=== PATIENT | female | born 1965 ===

== ENCOUNTER 2016-09-14 12:07 | Emergency (ER) | payer OTHER ==
[2016-09-14 12:13] VITALS: TEMP 97.6; O2SAT 98
[2016-09-14] MEDS ORDERED: Albuterol-Ipratrop 3 mg / 0.5 (3 ml) UD ONE (12:24)
--- NOTE | 2016-09-14 12:25 | ED PDOC ---
HPI: SOB/CHF/COPD Time Seen by Provider: 09/14/16 12:16 Chief Complaint (Nursing): Shortness Of Breath Chief Complaint (Provider): cough, wheezing History Per: Patient, Family (daughter at bedside is translating in German for patient) Additional Complaint(s): 50-year-old female with history of asthma presents to emergency department with wheezing and cough that started 4 days ago. Ventolin inhaler is not helping her symptoms. Patient denies recent travel or known sick contacts, no fever or chills. Patient has chest pain only when coughing. Past Medical History Reviewed: Historical Data, Nursing Documentation, Vital Signs Vital Signs: Last Vital Signs Temp 97.6 F 09/14/16 12:20 Pulse 79 09/14/16 14:30 Resp 19 09/14/16 14:30 BP 156/82 H 09/14/16 14:30 Pulse Ox 98 09/14/16 14:30 - Medical History PMH: Asthma - Surgical History Surgical History: No Surg Hx - Family History Family History: States: No Known Family Hx - Living Arrangements Living Arrangements: With Family - Social History Current smoker - smoking cessation education provided: No Alcohol: None Drugs: Denies - Home Medications Home Medications: Ambulatory Orders Medication Instructions Recorded Albuterol HFA [Ventolin HFA 90 1 puff IH ASDIR #1 unit 09/14/16 mcg/actuation (8 g)] Albuterol HFA [Ventolin HFA 90 1 puff INH PRN PRN 09/14/16 mcg/actuation (8 g)] predniSONE [Prednisone] 20 mg PO BID #10 tab 09/14/16 - Allergies Allergies/Adverse Reactions: Allergies Allergy/AdvReac Type Severity Reaction Status Date / Time No Known Allergies Allergy Verified 09/14/16 12:24 Wells Criteria for PE - Wells Criteria for Pulmonary Embolism Clinical Signs and Symptoms of DVT: No P.E is #1 Diagnosis, or Equally Likely: No Heart Rate >100: No Immobilization at least 3 days;Surgery previous 4 weeks: No Previous, objectively diagnosed PE or DVT: No Hemoptysis: No Malignancy w/treatment within 6 months, or palliative: No Total Score: 0 Review of Systems ROS Statement: Except As Marked, All Systems Reviewed And Found Negative Constitutional: Negative for: Fever, Chills Cardiovascular: Positive for: Chest Pain (due to cough) Respiratory: Positive for: Cough, Shortness of Breath, Wheezing Gastrointestinal: Negative for: Nausea, Vomiting Physical Exam - Reviewed Nursing Documentation Reviewed: Yes Vital Signs Reviewed: Yes - Physical Exam Appears: Positive for: Well, Non-toxic, No Acute Distress Skin: Negative for: Rash Eye Exam: Positive for: Normal appearance, EOMI, PERRL Cardiovascular/Chest: Positive for: Regular Rate, Rhythm Respiratory: Positive for: Rhonchi, Wheezing, Respiratory Distress (mild). Negative for: Accessory Muscle Use, Crackles, Rales Extremity: Negative for: Pedal Edema Neurologic/Psych: Positive for: Alert, Oriented - Laboratory Results Result Diagrams: 09/14/16 12:40 09/14/16 12:40 - ECG Interpretation Of ECG: SR 72 bpm with PVC's, reviewed by PA and ED attending O2 Sat by Pulse Oximetry: 98 Pulse Ox Interpretation: Normal - Other Rad CXR X-Ray: Interpreted by Me, Viewed By Me X-Ray Interpretation: no acute infiltrate Nebulizer Treatments/Peak Flow - Duonebs Number of Bronchodilator Doses given?: 3 (duoneb) - Pre/Post Peak Flow Pre Treatment Peak Flow: 100 Post treatment Peak Flow: 250 - Steroid Treatment Steroid: IV (125 mg solumedrol) - Clinical Response Clinical Response: Improved Medical Decision Making Medical Decision Making: Patient: Asthma exacerbation. Plan: CBC CMP Trop BNP CXR EKG IVF IV solumedrol 125 mg Duoneb x 3 Patient is aware of all diagnostic testing results, all questions answered. Patient feels much better after meds given in ED. Breath sounds much more clear upon repeat examination. Prescriptions given for Ventolin inhaler and prednisone. Patient was referred to clinic for follow up. Disposition - Clinical Impression Clinical Impression: Asthma exacerbation - Patient ED Disposition Is Patient to be Admitted: No Counseled Patient/Family Regarding: Studies Performed, Diagnosis, Need For Followup, Rx Given - Disposition Referrals: [facility] [Outside] Disposition: Routine/Home Disposition Time: 15:36 Condition: IMPROVED Additional Instructions: Take prescription medications as directed. Follow-up with clinic in 2-3 days. Prescriptions: Albuterol HFA [Ventolin HFA 90 mcg/actuation (8 g)] 1 puff IH ASDIR #1 unit predniSONE [Prednisone] 20 mg PO BID #10 tab Instructions: Asthma (ED) Print Language: TAMAZIGHT Results - Lab Results Lab Results: 09/14/16 09/14/16 12:40 12:40 WBC 10.3 RBC 5.01 Hgb 14.0 Hct 41.8 MCV 83.6 MCH 28.1 MCHC 33.6 RDW 14.1 Plt Count 246 MPV 7.8 Neut % (Auto) 56.2 Lymph % (Auto) 22.5 Wise % (Auto) 6.6 Eos % (Auto) 13.3 H Baso % (Auto) 1.4 Neut # 5.8 Lymph # 2.3 Wise # 0.7 Eos # 1.4 H Baso # 0.1 Sodium 142 Potassium 3.9 Chloride 102 Carbon Dioxide 28 Anion Gap 16 BUN 10 Creatinine 0.6 L Est GFR ( Amer) > 60 Est GFR (Non-Af Amer) > 60 Random Glucose 91 Calcium 9.6 Total Bilirubin 0.8 AST 28 ALT 42 Alkaline Phosphatase 90 Troponin I < 0.0120 NT-Pro-B Natriuret Pep 238 Total Protein 7.8 Albumin 4.5 Globulin 3.3 Albumin/Globulin Ratio 1.4
[2016-09-14] MEDS ORDERED: Sodium Chloride 0.9% 1,000 ML IV STA (12:26)
[2016-09-14] MEDS ORDERED: Albuterol-Ipratrop 3 mg / 0.5 (3 ml) UD INH STA (12:26)
[2016-09-14 12:57] LABS: BASO # 0.1 K/uL (0.0-0.2); BASO % 1.4 % (0.0-2.0); EOS # 1.4 K/uL (0.0-0.7); EOS % 13.3 % (0.0-4.0); HEMATOCRIT 41.8 % (34.0-47.0); LYMPH # 2.3 K/uL (1.0-4.3); LYMPH % 22.5 % (20.0-40.0); MEAN CELL VOLUME 83.6 fl (81.0-99.0); MEAN CORPUSCULAR HEMOGLOBIN 28.1 pg (27.0-31.0); MEAN CORPUSCULAR HGB CONC 33.6 g/dL (33.0-37.0); MEAN PLATELET VOLUME 7.8 fl (7.2-11.7); MONO # 0.7 K/uL (0.0-0.8); MONO % 6.6 % (0.0-10.0); NEUT # 5.8 K/uL (1.8-7.0); NEUT % 56.2 % (50.0-75.0); NRBC % 0.1 % (0.0-0.0); RED CELL DISTRIBUTION WIDTH 14.1 % (11.5-14.5); WHITE BLOOD COUNT 10.3 K/uL (4.8-10.8)
--- NOTE | 2016-09-14 12:59 | RAD ---
HISTORY: cough, SOB, asthma COMPARISON: No prior. FINDINGS: LUNGS: No active pulmonary disease. PLEURA: No significant pleural effusion identified, no pneumothorax apparent. CARDIOVASCULAR: Normal. OSSEOUS STRUCTURES: No significant abnormalities. VISUALIZED UPPER ABDOMEN: Normal. OTHER FINDINGS: None. IMPRESSION: No active disease.
[2016-09-14 13:07] LABS: ALB/GLOB RATIO 1.4 (1.0-2.1); ALKALINE PHOSPHATASE 90 U/L (38-126); ALT/SGPT 42 U/L (9-52); AST/SGOT 28 U/L (14-36); BILIRUBIN,TOTAL 0.8 mg/dl (0.2-1.3); BLOOD UREA NITROGEN 10 mg/dl (7-17); CALCIUM 9.6 mg/dL (8.4-10.2); CARBON DIOXIDE 28 mmol/L (22-30); CHLORIDE 102 mmol/L (98-107); GFR AFRICAN-AMERICAN > 60; GLUCOSE,RANDOM 91 mg/dL (65-105); POTASSIUM 3.9 MMOL/L (3.6-5.0); SODIUM 142 mmol/l (132-148); TOTAL PROTEIN 7.8 G/DL (6.3-8.2)
[2016-09-14 14:30] VITALS: BP 156/82; PULSE 79; RESP 19
--- NOTE | 2016-09-16 07:17 | CARD ---
APPROVED REPORT EKG Measurement Heart [id number] <Conclusion> Sinus rhythm with premature supraventricular complexes Otherwise normal ECG
== END 2016-09-14 15:56 | disposition home or self-care (01) ==
LOC: H.ER 12:07
DX: J45.901 Unspecified asthma with (acute) exacerbation (principal); R05 Cough

== ENCOUNTER 2016-10-21 22:54 | Emergency (ER) | payer OTHER ==
[2016-10-21] MEDS ORDERED: Albuterol-Ipratrop 3 mg / 0.5 (3 ml) UD ONE (23:20)
[2016-10-21] MEDS ORDERED: Albuterol-Ipratrop 3 mg / 0.5 (3 ml) UD INH STA (23:27)
--- NOTE | 2016-10-21 23:45 | ED PDOC ---
HPI: SOB/CHF/COPD Time Seen by Provider: 10/21/16 23:16 Chief Complaint (Nursing): Shortness Of Breath History Per: Patient Additional History Per: Patient Additional Complaint(s): Pt. states for the past week she's had a cough and sore throat and today she developed wheezing and chest tightness. She used albuterol nebs and inhaler without any relief prompting ED visit. Denies previous intubations, previous admissions for asthma, fever, hemoptysis, rash. Past Medical History Reviewed: Historical Data, Nursing Documentation, Vital Signs Vital Signs: Last Vital Signs Temp 99.2 F 10/21/16 22:57 Pulse 98 H 10/21/16 22:57 Resp 20 10/21/16 23:22 BP 150/70 10/21/16 22:57 Pulse Ox 98 10/21/16 23:45 - Medical History PMH: Asthma - Family History Family History: States: No Known Family Hx - Home Medications Home Medications: Ambulatory Orders Medication Instructions Recorded Albuterol HFA [Ventolin HFA 90 1 puff IH ASDIR #1 unit 09/14/16 mcg/actuation (8 g)] Albuterol HFA [Ventolin HFA 90 1 puff INH PRN PRN 09/14/16 mcg/actuation (8 g)] predniSONE [Prednisone] 20 mg PO BID #10 tab 09/14/16 Albuterol 0.083% [Albuterol 3 ml IH Q4 PRN #50 neb 10/22/16 Sulfate 3 Ml] Albuterol HFA [Ventolin HFA 90 2 puff IH [id number] PRN #1 each 10/22/16 mcg/actuation (8 g)] Methylprednisolone [Medrol Dose 4 mg PO DAILY #21 mg 10/22/16 Pack (21 tabs)] - Allergies Allergies/Adverse Reactions: Allergies Allergy/AdvReac Type Severity Reaction Status Date / Time No Known Allergies Allergy Verified 09/14/16 12:24 Review of Systems ROS Statement: Except As Marked, All Systems Reviewed And Found Negative ENT: Positive for: Throat Pain Respiratory: Positive for: Cough, Wheezing Physical Exam - Physical Exam Appears: Positive for: Well, Non-toxic, No Acute Distress Skin: Positive for: Normal Color, Warm. Negative for: Rash Eye Exam: Positive for: EOMI, Normal appearance, PERRL ENT: Positive for: Normal ENT Inspection Neck: Positive for: Normal, Painless ROM Cardiovascular/Chest: Positive for: Regular Rate, Rhythm Respiratory: Positive for: Wheezing (b/l), Other (speaking in full sentences). Negative for: Decreased Breath Sounds, Accessory Muscle Use, Crackles, Rales, Rhonchi, Respiratory Distress Extremity: Positive for: Normal ROM Neurologic/Psych: Positive for: Alert, Oriented - ECG ECG: Positive for: Interpreted By Me ECG Rhythm: Positive for: Sinus Tachycardia. Negative for: ST/T Changes Rate: 106 O2 Sat by Pulse Oximetry: 98 - Radiology X-Ray: Interpreted by Me (CXR) X-Ray Interpretation: No Acute Disease - Progress ED Course And Treament: Duoneb x 3, prednisone 60mg PO given. CXR ordered. Re-evaluation Time: 01:34 (Lungs clear b/l. Reports good relief of wheezing and dyspnea.) Condition: Re-examined, Improved Disposition - Clinical Impression Clinical Impression: Bronchospasm, acute - Patient ED Disposition Is Patient to be Admitted: No - Disposition Referrals: [facility] [Outside] Disposition: Routine/Home Disposition Time: 01:35 Condition: IMPROVED Prescriptions: Albuterol HFA [Ventolin HFA 90 mcg/actuation (8 g)] 2 puff IH [id number] PRN #1 each PRN Reason: Wheezing Albuterol 0.083% [Albuterol Sulfate 3 Ml] 3 ml IH Q4 PRN #50 neb PRN Reason: Wheezing Methylprednisolone [Medrol Dose Pack (21 tabs)] 4 mg PO DAILY #21 mg Instructions: Bronchospasm (ED)
[2016-10-22] MEDS ORDERED: Albuterol 0.083% Inhal Sol (2.5 mg/3 mL) UD ONE (00:59)
[2016-10-22] MEDS ORDERED: Albuterol 0.083% Inhal Sol (2.5 mg/3 mL) UD INH STA (01:03)
--- NOTE | 2016-10-22 08:45 | RAD ---
HISTORY: cough COMPARISON: Chest x-ray performed 09/14/16 TECHNIQUE: Chest PA and lateral FINDINGS: Examination limited by habitus. LUNGS: No focal consolidation. Please note that chest x-ray has limited sensitivity for the detection of pulmonary masses. PLEURA: No significant pleural effusion identified. No definite pneumothorax . CARDIOVASCULAR: The cardiomediastinal silhouette appears within normal limits of size. OSSEOUS STRUCTURES: Mild multilevel degenerative changes. VISUALIZED UPPER ABDOMEN: Unremarkable. OTHER FINDINGS: None. IMPRESSION: No focal consolidation, significant pleural effusion, or definite pneumothorax identified.
[2016-10-22 12:17] VITALS: BP 150/70; PULSE 100; RESP 18; TEMP 99.2; O2SAT 100
--- NOTE | 2016-10-28 09:02 | CARD ---
APPROVED REPORT EKG Measurement Heart [id number] <Conclusion> Sinus tachycardia Nonspecific ST abnormality Abnormal ECG
== END 2016-10-22 01:58 | disposition home or self-care (01) ==
LOC: H.ER 22:54
DX: J98.01 Acute bronchospasm (principal)